=== PATIENT | female | born 1940 | race Caucasian/White ===

== ENCOUNTER 2018-12-11 13:23 | Emergency (ER) | payer MEDICARE, BC ==
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
[2018-12-11] MEDS ORDERED: Metoclopramide 10 MG/2 ML SDV IVPUSH ONE (14:41)
[2018-12-11] MEDS ORDERED: Sodium Chloride 0.9% 10 ML Syringe FLUSH PRN (14:41)
[2018-12-11] MEDS ORDERED: fentaNYL 100 MCG/2 ML SDV IVPUSH ONE (14:41)
[2018-12-11] MEDS ORDERED: Sodium Chloride 0.9% 80 ML IV ONE (14:45)
[2018-12-11] MEDS ORDERED: Iopamidol 500 ML BOTTLE IV ONE (14:45)
[2018-12-11] MEDS: Sodium Chloride 0.9% 10 ML Syringe FLUSH ONE ×2 (15:32→15:51)
[2018-12-11] MEDS ORDERED: Cyclobenzaprine 10 MG Tab PO ONE (15:37)
[2018-12-11] MEDS ORDERED: Acetaminophen/HYDROcodone 325-5 MG Tab PO ONE (15:38)
[2018-12-11] MEDS ORDERED: Morphine 4 MG/ML Syringe IVPUSH ONE ×2 (16:04→16:53)
--- NOTE | 2018-12-11 16:17 | CRLCT ---
INDICATION: Anterior chest wall trauma TECHNIQUE: CT chest was acquired with 100 cc Isovue-300 IV contrast. COMPARISON: None. FINDINGS: Lungs and pleural: No suspicious nodules or infiltrates. There is diffuse interlobular septal thickening. No pleural effusions, pleural thickening, or pneumothorax. Heart and vasculature: Heart size is normal. Thoracic aorta and pulmonary artery are normal in caliber. Lymph nodes/mediastinum: No mediastinal, hilar, or axillary adenopathy. Small hiatal hernia. Irregular low-attenuation lesion measuring 1.7 cm with a central calcification is in the right thyroid lobe on series 2, image 13. Multiple small subcentimeter nodules are in the left thyroid lobe. Chest wall: All Upper abdomen: Normal. Bones: There is a mild angulation in the anterior cortex of the lower sternum as demonstrated on series 7, image 55. No other sign of fracture or malalignment. IMPRESSION: Mild angulation in the anterior cortex of the lower sternum is equivocal for an acute fracture. Remainder of the chest is unremarkable. No other signs of acute injury or disease. Dictated by Jacques Banda MD @ 12/11/2018 4:15:31 PM Please note that all CT scans at this facility use dose modulation, iterative reconstruction, and/or weight-based dosing when appropriate to reduce radiation dose to as low as reasonably achievable. Dictated by: Jacques Banda MD @ 12/11/2018 16:15:38 (Electronically Signed)
[2018-12-11] MEDS ORDERED: HYDROmorphone 0.5 MG/0.5 ML Syringe IVPUSH ONE (16:54)
== END 2018-12-11 18:53 | disposition home or self-care (01) ==
LOC: JP.ED 13:23
DX: S22.20XA Unspecified fracture of sternum, initial encounter for closed fracture (principal); W19.XXXA Unspecified fall, initial encounter
CPT/HCPCS: 36415; 71260; 80048; 85025; 93005; 96374; 96375; 99285; A9270; J1170; J2270; J2765; J3010; J7030; Q9967